=== PATIENT | female | born 1995 | race Caucasian/White ===

== ENCOUNTER 2018-08-26 15:45 | Outpatient (CLI) | payer MEDICAID ==
[2018-08-26 18:51] LABS: APPEARANCE CLEAR (CLEAR); BILIRUBIN NEGATIVE (NEGATIVE); COLOR YELLOW (YELLOW); GLUCOSE NEGATIVE (NEGATIVE); KETONE NEGATIVE (NEGATIVE); NITRITE NEGATIVE (NEGATIVE); PROTEIN NEGATIVE (NEGATIVE); UROBILINOGEN NORMAL (NORMAL)
[2018-08-26 19:38] LABS: UDS - AMPHET NEGATIVE QUAL (NEGATIVE); UDS - BARB NEGATIVE QUAL (NEGATIVE); UDS - BENZO NEGATIVE QUAL (NEGATIVE); UDS - COCAINE NEGATIVE QUAL (NEGATIVE); UDS - OPIATE NEGATIVE QUAL (NEGATIVE); UDS - PCP NEGATIVE QUAL (NEGATIVE); UDS - THC NEGATIVE QUAL (NEGATIVE)
== END 2018-08-26 21:02 ==
LOC: D.LDO 15:45
PROVIDERS: Obstetrics & Gynecology
DX: O26.893 Other specified pregnancy related conditions, third trimester (principal); Z3A.31 31 weeks gestation of pregnancy

== ENCOUNTER → 2018-09-14 14:43 | Outpatient (CLI) | payer MEDICAID ==
[2018-09-14 15:56] LABS: APPEARANCE SL CLDY (CLEAR); BILIRUBIN NEGATIVE (NEGATIVE); COLOR YELLOW (YELLOW); GLUCOSE NEGATIVE (NEGATIVE); KETONE NEGATIVE (NEGATIVE); NITRITE NEGATIVE (NEGATIVE); PROTEIN NEGATIVE (NEGATIVE); SPECIFIC GRAVITY 1.015 (1.005-1.020); UROBILINOGEN NORMAL (NORMAL)
[2018-09-14 15:57] LABS: BACTERIA MODERATE /hpf (NONE SEEN); RED CELLS - URINE 0-5 /hpf (0-5); WHITE CELLS - URINE 0-5 /hpf (0-5)
[2018-09-14 15:58] LABS: MUCUS <1+ /lpf (NONE SEEN)
[2018-09-14 16:09] LABS: UDS - AMPHET NEGATIVE QUAL (NEGATIVE); UDS - BARB NEGATIVE QUAL (NEGATIVE); UDS - BENZO NEGATIVE QUAL (NEGATIVE); UDS - COCAINE NEGATIVE QUAL (NEGATIVE); UDS - OPIATE NEGATIVE QUAL (NEGATIVE); UDS - PCP NEGATIVE QUAL (NEGATIVE); UDS - THC NEGATIVE QUAL (NEGATIVE)
== END | disposition home or self-care (01) ==
LOC: D.LDO 14:43
PROVIDERS: Obstetrics & Gynecology
DX: O26.893 Other specified pregnancy related conditions, third trimester (principal); Z3A.34 34 weeks gestation of pregnancy

== ENCOUNTER → 2018-09-24 08:48 | Outpatient (CLI) | payer MEDICAID | END | disposition home or self-care (01) | LOC: D.LDO 08:48 | DX: O26.893 Other specified pregnancy related conditions, third trimester (principal); Z3A.35 35 weeks gestation of pregnancy ==

== ENCOUNTER 2018-10-04 18:58 | Outpatient (CLI) | payer MEDICAID ==
[2018-10-04 20:12] LABS: APPEARANCE CLEAR (CLEAR); BILIRUBIN NEGATIVE (NEGATIVE); COLOR STRAW (YELLOW); GLUCOSE NEGATIVE (NEGATIVE); KETONE NEGATIVE (NEGATIVE); NITRITE NEGATIVE (NEGATIVE); PROTEIN NEGATIVE (NEGATIVE); UROBILINOGEN NORMAL (NORMAL)
[2018-10-04 20:14] LABS: BACTERIA MODERATE /hpf (NONE SEEN); EPITHELIAL CELLS 0-5 /hpf (0-5); RED CELLS - URINE 0-5 /hpf (0-5); WHITE CELLS - URINE 0-5 /hpf (0-5)
== END 2018-10-04 20:43 | disposition home or self-care (01) ==
LOC: D.LDO 18:58
PROVIDERS: Obstetrics & Gynecology
DX: O26.893 Other specified pregnancy related conditions, third trimester (principal); Z3A.37 37 weeks gestation of pregnancy; R10.2 Pelvic and perineal pain

== ENCOUNTER 2018-10-21 04:45 | Inpatient (IN) | payer MEDICAID ==
[~2018-10-21] VITALS: Ht 162.6 cm; Wt 74.8 kg
[2018-10-21 05:04] VITALS: BP 120/67; Ht 162.6 cm; Wt 74.8 kg
[2018-10-21 06:36] LABS: HEMATOCRIT 34.9 % (36.0-48.0); HEMOGLOBIN 11.7 g/dL (12-16); MCH 30.8 pg (26.0-34.0); MCHC 33.5 g/dL (31.0-37.0); MCV 91.8 fL (80.0-100.0); MEAN PLATELET VOLUME 9.7 fL (7.4-10.4); RBC 3.8 10x6/uL (4.00-5.40); RDW 14.1 % (11.5-14.5); WBC 11.8 10x3/uL (4.8-10.8)
[2018-10-21 06:43] LABS: UDS - AMPHET NEGATIVE QUAL (NEGATIVE); UDS - BARB NEGATIVE QUAL (NEGATIVE); UDS - BENZO NEGATIVE QUAL (NEGATIVE); UDS - COCAINE NEGATIVE QUAL (NEGATIVE); UDS - OPIATE NEGATIVE QUAL (NEGATIVE); UDS - PCP NEGATIVE QUAL (NEGATIVE); UDS - THC NEGATIVE QUAL (NEGATIVE)
[2018-10-21 15:59] VITALS: BP 116/67
--- NOTE | 2018-10-21 17:06 | NUR ---
PT RATES PAIN 3/10 AT THIS TIME. PT ASKS "IS THERE ANYTHING ELSE YOU CAN GIVE ME FOR PAIN? DO YOU THINK THIS IS FROM THE SURGERY?" THIS RN INQUIRES WHAT PAIN FEELS LIKE. PT STATES "IT FEELS LIKE REALLY BAD CRAMPING." EDU PT THAT WITH 3RD BABY CRAMPING MAY BE MORE INTENSE THAN THE PREVIOUS DELIVERY AND THAT CRAMPING IS NORMAL POST . PT VERBALIZES UNDERSTANDING. NO NEEDS VOICED AT THIS TIME. WILL CONTINUE TO MONITOR PRN.
--- NOTE | 2018-10-21 17:42 | NUR ---
PT ACCOUNTING TECHNICIAN LIGHT. RN TO BEDSIDE. PT STATES "I NEED HELP CHANGING HIS DIAPER BECAUSE IT HURTS ME TO PROJECT MANAGEMENT ENGINEER." ABD ASSESSED. INCISIONS WELL APPROXIMATED. FUNDUS FIRM, U/U, ML. BLADDER NON-DISTENDED. DIAPER CHANGED AT THIS TIME. PACIFIER PROVIDED PER PT REQUEST. PT DENIES FURTHER NEEDS AT THIS TIME.
--- NOTE | 2018-10-21 18:25 | NUR ---
PT RINGS CALL LIGHT WITH REPORT SHE NEEDS TO VOID. RN TO BEDSIDE. INFANT PLACED IN OPEN CRIB AT THIS TIME. PT ASSISTED TO SITTING ON BEDSIDE WITHOUT C/O DIZZINESS OR LIGHTHEADEDNESS. PT ASSISTED TO STANDING AT BEDSIDE WITHOUT C/O DIZZINESS. PT AMB TO BATHROOM WITH STAND BY ASSIST. VOIDS LARGE AMOUNT ON COMMODE. MESH PANTIES AND PERIPADS PROVIDED. PINK PAD CHANGED. PT DENIES FURTHER NEEDS AT THIS TIME.W ILL CONT TO MONITOR PRN.
--- NOTE | 2018-10-21 19:15 | NUR ---
BEDSIDE SHIFT REPORT COMPLETED AT THIS TIME
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
--- NOTE | 2018-10-21 21:00 | NUR ---
SHIFT ASSESSMENT COMPLETED AT THIS TIME, SEE FLOWSHEET.
--- NOTE | 2018-10-21 22:07 | NUR ---
PATIENT LYING IN BED WITH EYES OPEN, PERCOCET 5/325MG PO PER PT REQUEST FOR 4/10 PAIN. SEE EMAR. ICE WATER PROVIDED PER PT REQUEST, DENIES FURTHER NEEDS AT THIS TIME, WILL CONTINUE TO MONITOR.
[2018-10-21 22:39] VITALS: BP 115/72
--- NOTE | 2018-10-21 23:40 | NUR ---
PATIENT RESTING QUIETLY WITH EYES CLOSED. RESPIRATIONS EVEN AND NON LABORED. NO DISTRESS NOTED.
--- NOTE | 2018-10-22 00:21 | NUR ---
PT RESTING QUIETLY WITH EYES CLOSED, EASILY AROUSED TO VERBAL. MOTRIN 800MG PO GIVEN AT THIS TIME PER MD ORDERS. SEE EMAR.
--- NOTE | 2018-10-22 01:10 | NUR ---
PT RESTING QUIETLY WITH EYES CLOSED, RESPIRATIONS EVEN AND NON LABORED. NO DISTRESS NOTED, WILL CONTINUE TO MONITOR.
--- NOTE | 2018-10-22 02:20 | NUR ---
PT RESTING WITH EYES CLOSED AND AUDIBLE SNORING. NO DISTRESS NOTED. WILL CONTINUE TO MONITOR.
[2018-10-22] MEDS ORDERED: KEFLEX500 MG (04:45)
[2018-10-22] MEDS ORDERED: FLAGYL500 MG (04:46)
[2018-10-22] MEDS ORDERED: NICOTINE 14 MG/24 HR (04:47)
[2018-10-22] MEDS ORDERED: FERROUS SULFAT325 MG (04:47)
[2018-10-22] MEDS ORDERED: PROCARDIA10 MG (04:47)
[2018-10-22] MEDS ORDERED: [UNRECOGNIZED DRUG - OTHER] (04:48)
--- NOTE | 2018-10-22 05:03 | NUR ---
PT RESTING WITH EYES CLOSED AND AUDIBLE SNORING. NO DISTRESS NOTED. WILL CONTINUE TO MONITOR
[2018-10-22 06:56] LABS: BASOPHILS 0.2 % (0-2); EOSINOPHILS 0.8 % (0-7); HEMATOCRIT 34.8 % (36.0-48.0); HEMOGLOBIN 11.3 g/dL (12-16); IMMATURE GRANULOCYTES 0.9 % (0-5); LYMPHOCYTES 15.5 % (15-50); MCH 30.2 pg (26.0-34.0); MCHC 32.5 g/dL (31.0-37.0); MEAN PLATELET VOLUME 9.7 fL (7.4-10.4); MONOCYTES 8.1 % (2-11); NEUTROPHILS 74.5 % (40-80); PLATELET COUNT 127 10x3/uL (130-400); RBC 3.74 10x6/uL (4.00-5.40); RDW 14.2 % (11.5-14.5); WBC 10.8 10x3/uL (4.8-10.8)
--- NOTE | 2018-10-22 07:10 | NUR ---
BEDSIDE SHIFT REPORT RCVD FROM Khushi PANIAGUA RN. PT LYING ON RT SIDE WITH C/O PAIN 07/08 DESCRIBED CRAMPING AND PT STATES "I FEEL LIKE MY BELLY BUTTON IS GOING TO BUST OPEN." PERCOCET 5/325MG X1 TAB GIVEN AT THIS TIME. FRESH WATER PROVIDED PER REQUEST. PT DENIES FURTHER NEEDS AT THIS TIME.
[2018-10-22 07:48] VITALS: BP 115/52
--- NOTE | 2018-10-22 08:17 | NUR ---
SHIFT ASSESSMENT COMPLETED. PT IS AAOX3. RATES PAIN 3/10 AND TOLERABLE AT THIS TIME. HR-RRR, PPP, BREATH SOUNDS CLEAR & UNLABORED X2. BOWEL SOUNDS ACTIVE X4. SL NOTED TO RT HAND C/D/I WITHOUT ERYTHEMA OR EDEMA NOTED TO SITE. NO EDEMA NOTED TO BLE. FUNDUS FIRM, U/1, ML. INCISION AT UMBILICUS WNL WITH STERISTRIPS IN PLACE. PT DENIES FURTHER NEEDS AT THIS TIME. WILL CONTINUE TO MONITOR PRN
--- NOTE | 2018-10-22 09:00 | NUR ---
ROUNDS MADE. PT REFUSES NICOTINE PATCH. REPORTS PAIN IS "A LITTLE BETTER." DENIES NEEDS.
--- NOTE | 2018-10-22 10:14 | NUR ---
SCHEDULE MOTRIN GIVEN PER ORDERS. SEE EMAR FOR ADMINISTRATION. PT REPORTS HAVING INCREASED GAS PAINS. MYLANTA OFFERED AND PT IS AGREEABLE. MYLANTA GIVEN. SEE EMAR. PT STATES "DR OROZCO SAID I COULD HAVE A BAND BC I FEEL LIKE MY BELLY BUTTON IS ABOUT TO POP OPEN. ADV PT I WILL INQUIRE WITH MD. PT DENIES FURTHER NEEDS. RESTING IN OPEN BED AT BEDSIDE AND IN NO ACUTE DISTRESS.
--- NOTE | 2018-10-22 11:00 | NUR ---
PAIN REASSESSMENT COMPLETED. PT RATES PAIN 3/10 AND TOLERABLE. DENIES FURTHER NEEDS. WILL CONTINUE TO MONITOR PRN.
--- NOTE | 2018-10-22 13:08 | NUR ---
RN TO BEDSIDE WITH ABDOMINAL BINDER. INSTRUCTIONS PROVIDED. ASSISTED PT WITH PLACING ABD BINDER. PT STATES "THAT FEELS BETTER ALREADY." DENIES FURTHER NEEDS AT THIS TIME. DR OROZCO TO BEDSIDE. REPORTS CIRCUMCISION ON IS DONE AND WILL BE MONITORED FOR 1 HR. PT VERBALIZES UNDERSTANDING AND DENIES QUESTIONS OR CONCERNS.
[2018-10-22] MEDS ORDERED: PERCOCET 5-3251 TAB PO (13:15)
[2018-10-22] MEDS ORDERED: IBUPROFEN800 MG PO (13:15)
--- NOTE | 2018-10-22 14:32 | NUR ---
D/C INSTRUCTIONS EXPLAINED, SIGNED, AND WITNESSED. SL TO RT HAND D/C'D WITH CATH TIP INTACT. PRESSURE DRESSING APPLIED TO SITE. PT TOLERATED WELL. NO FURTHER QUESTIONS OR CONCERNS VOICED. PT AWAITING D/C TO HOME.
--- NOTE | 2018-10-22 16:21 | NUR ---
RN TO BEDSIDE WITH W/C. CARSEAT CHECKS. STRAPS ON LOWEST SETTING AND CARSEAT IS APPROPRIATE. PT AND TRANSPORTED VIA W/C TO AWAITING RIDE FOR D/C TO HOME.
== END 2018-10-22 16:21 | disposition home or self-care (01) | DRG 798 ==
LOC: D.LD 04:45
PROVIDERS: ADMIT Obstetrics & Gynecology
PROC: 0UB70ZZ Excision of Bilateral Fallopian Tubes, Open Approach (ICD-10-PCS; 2018-10-21)
PROC: 0HQ9XZZ Repair Perineum Skin, External Approach (ICD-10-PCS; 2018-10-21)
PROC: 10E0XZZ Delivery of Products of Conception, External Approach (ICD-10-PCS; principal; 2018-10-21 12:30)
DX: O99.334 Smoking (tobacco) complicating childbirth (principal); Z37.0 Single live birth; Z3A.39 39 weeks gestation of pregnancy; Z30.2 Encounter for sterilization; O71.82 Other specified trauma to perineum and vulva; O99.324 Drug use complicating childbirth; F15.90 Other stimulant use, unspecified, uncomplicated